=== PATIENT | female | born 1960 | race Caucasian/White ===

== ENCOUNTER 2017-12-24 11:17 | Emergency (ER) | payer OTHER, MEDICAID ==
[2017-12-24] MEDS: ONDANSETRON 4 MG INJ IV (11:42)
[2017-12-24] MEDS: SOD CHLORIDE 0.9% 1,000 ML IV (11:42)
[2017-12-24 11:59] LABS: ADD MAN DIFF? NO
[2017-12-24 12:07] LABS: WHITE BLOOD COUNT 7.2 10^3/ul (4.8-10.8)
[2017-12-24 12:07] LABS: BASOPHIL # 0.1 10^3/ul (0.0-0.1); BASOPHILS % 0.7 % (0.0-2.0); EOSINOPHILS # 0.1 10^3/ul (0.0-0.5); EOSINOPHILS % 1.2 % (0.0-7.0); HEMATOCRIT 38.7 % (37.0-47.0); HEMOGLOBIN 12.9 g/dl (12.0-16.0); LYMPHOCYTES # 3.1 10^3/ul (0.8-2.9); LYMPHOCYTES % 43.5 % (15.0-51.0); MEAN CORPUSCULAR HEMOGLOBIN 29.3 pg (29.0-33.0); MEAN CORPUSCULAR HGB CONC 33.3 g/dl (32.0-37.0); MEAN PLATELET VOLUME 11.8 fl (7.4-10.4); MONOCYTE # 0.6 10^3/ul (0.3-0.9); MONOCYTES % 7.6 % (0.0-11.0); NEUTROPHIL # 3.4 10^3/ul (1.6-7.5); NEUTROPHILS % 46.6 % (39.0-77.0); PLATELET COUNT 234 10^3/UL (140-415); RED CELL DISTRIBUTION WIDTH 13.2 % (11.5-14.5)
[2017-12-24] MEDS: HYDROCODONE/APAP (10/325) TAB PO (12:19)
[2017-12-24 12:26] LABS: INR 0.83; PROTIME 11.5 Sec (11.9-14.9); PT RATIO 0.9
[2017-12-24 12:28] LABS: ANION GAP 13 (8-16); BLOOD UREA NITROGEN 17 mg/dl (7-20); CALCIUM 9.2 mg/dl (8.4-10.2); CARBON DIOXIDE 27 mmol/L (21-31); CHLORIDE 109 mmol/L (97-110); CHOL/HDL RATIO 4.3 RATIO; CHOLESTEROL 217 mg/dl (100-200); CREATININE 0.58 mg/dl (0.44-1.00); GLUCOSE 113 mg/dl (70-220); HDL CHOLESTEROL 50 mg/dl (35-98); LDL CHOLESTEROL,CALCULATED 128 mg/dl; SODIUM 145 mmol/L (135-144); TRIGLYCERIDES 195 mg/dl (0-149)
[2017-12-24 12:37] LABS: TROPONIN-I < 0.012 ng/ml (0.000-0.120)
[2017-12-24 12:47] LABS: PARTIAL THROMBOPLASTIN TIME 29.8 Sec (25.0-35.0)
[2017-12-24 12:48] LABS: HEMOGLOBIN A1C 5.7 % (0-5.9)
[2017-12-24] MEDS: MECLIZINE 12.5 MG TAB PO (14:24)
== END 2017-12-24 15:09 | disposition home or self-care (01) ==
LOC: E/R 11:17
DX: R42 Dizziness and giddiness (principal); R40.2252 Coma scale, best verbal response, oriented, at arrival to emergency department; R40.2362 Coma scale, best motor response, obeys commands, at arrival to emergency department; I10 Essential (primary) hypertension
CPT/HCPCS: 36415; 70450; 71045; 80048; 80061; 83036; 84484; 85025; 85610; 85730; 93005; 96374; 99285-25